=== PATIENT | female | born 1985 | race African-American/Black ===

== ENCOUNTER 2017-06-25 16:15 | Emergency (ER) | payer SELFPAY ==
[~2017-06-25] VITALS: Ht 162.6 cm; Wt 106.6 kg
[~2017-06-25 16:15] MED LIST: HYDROCODON-ACE1 EAC4 ORAL; IBUPROFEN600 MG ORAL; IBUPROFEN600 MG PO; IBUPROFEN800 MG PO; NAPROSYN500 M1 ORAL; NKM; NORCO 5-325 TA1 EACH ORAL; ROBAXIN-750750 MG PO; SOMA350 MG PO; VALIUM5 MG ORAL; VALIUM5 MG PO; VICODIN 5-5001 EACH PO; ZYRTEC10 MG PO
[2017-06-25] MEDS ORDERED: Metoclopramide 10mg/10ml Liq ORAL ONE ×2 (16:45→19:15)
[2017-06-25 17:11] LABS: BASOPHILS % (AUTO) 0.8 % (0.0-2.0); EOSINOPHILS % (AUTO) 8.9 % (0.0-3.0); LYMPHOCYTES % (AUTO) 19.2 % (20.0-45.0); MEAN CORPUSCULAR HEMOGLOBIN 26.9 PG (27.0-31.0); MEAN CORPUSCULAR HGB CONC 30.9 G/DL (32.0-36.0); MEAN CORPUSCULAR VOLUME 87 FL (80-99); MONOCYTES % (AUTO) 7.1 % (1.0-10.0); PLATELET COUNT 403 K/UL (150-450); RED BLOOD COUNT 4.56 M/UL (4.20-5.40); RED CELL DISTRIBUTION WIDTH 13.9 % (11.6-14.8); WHITE BLOOD COUNT 11.6 K/UL (4.8-10.8)
[2017-06-25 17:26] LABS: APPEARANCE,URINE CLEAR; KETONES,URINE NEGATIVE (NEGATIVE); LEUKOCYTE ESTERASE ,URINE NEGATIVE (NEGATIVE); NITRITE,URINE NEGATIVE (NEGATIVE); PH,URINE 7 (4.5-8.0); PROTEIN,URINE NEGATIVE (NEGATIVE); UROBILINOGEN,URINE NORMAL MG/DL (0.0-1.0)
[2017-06-25 17:38] LABS: BACTERIA,URINE FEW /HPF; RBC,URINE 0-2 /HPF (0 - 2); SQUAMOUS EPITHELIAL CELL,UR FEW /LPF (NONE/OCC); WBC,URINE 0-2 /HPF (0 - 2)
--- NOTE | 2017-06-25 19:12 | Emergency Room Report ---
History of Present Illness General Chief Complaint: Complications Source: Patient Present Illness HPI 32-year-old female presents to the emergency department complaining of 5/10 in severity left-sided abdominal pain that she describes as cramping. Patient reports some scant spotting in addition to positive at-home test. Patient states that she is with previous sections and no complications during her other than required delivery. She denies fevers or chills she reports nausea and vomiting denies blood in the vomit. Denies constipation or diarrhea. She states that she has not had followup with her [employer] or primary care since having positive at-home urine test. Denies CP, Palpitations, LOC, AMS, dizziness, Changes in Vision , Sensation, paresthesias, or a sudden severe headache. Allergies: Coded Allergies: No Known Allergies (Unverified , 03/18/12) Patient History Last Menstrual Period: 03/2017 Now: Yes : 3 Para: 2 Nursing Documentation-[facility] Past Medical History: No Stated History Physical Exam Vital Signs Date Time Temp Pulse Resp B/P (MAP) Pulse Ox O2 Delivery O2 Flow Rate FiO2 06/25/17 16:23 97.9 86 16 133/88 100 Room Air Medical Decision Making PA Attestation Dr. cao is my supervising Physician whom patient management has been discussed with. Diagnostic Impression: Primary Impression: Abdominal pain during in first trimester Additional Impression: Threatened ER Course 32-year-old female presents to the emergency department complaining of 5/10 in severity left-sided abdominal pain that she describes as cramping. Patient reports some scant spotting in addition to positive at-home test. Patient states that she is with previous sections and no complications during her other than required delivery. She denies fevers or chills she reports nausea and vomiting denies blood in the vomit. Denies constipation or diarrhea. She states that she has not had followup with her [employer] or primary care since having positive at-home urine test. Denies CP, Palpitations, LOC, AMS, dizziness, Changes in Vision , Sensation, paresthesias, or a sudden severe headache. Ddx considered but are not limited to: Fibroid, ectopic , Fibroid, Spontaneous , Vital signs: are WNL, pt. is afebrile H&PE are most consistent with: abdominal pain in early ORDERS: -CBC: wbc 11.6, no anemia. -Urine hcg- Positive -serum Hcg Quant: [id number] - Blood/RH type and screen- see attached labs : O POSITIVE -Pelvic US complete- normal intrauterine estimated at 7 + 6 days weeks gestation. HR is 131 ED INTERVENTIONS: -Reglan PO Discussed with patient results of all to sound and laboratory testing. Recommend followup with [employer] within 3 days and to return to the emergency department with worsening or new symptoms. Discussed with patient at best and that with positive and history of spotting that threatened miscarriage should be considered and recommend bedrest. DISCHARGE: At this time pt. is stable for d/c to home. Will provide printed patient care instructions, and any necessary prescriptions. Care plan and follow up instructions have been discussed with the patient prior to discharge. Labs Test 06/25/17 16:34 06/25/17 16:50 06/25/17 17:35 Urine Color Pale yellow Urine Appearance Clear Urine pH 7 (4.5-8.0) Urine Specific [place] 1.010 (1.005-1.035) Urine Protein Negative (NEGATIVE) Urine Glucose (UA) Negative (NEGATIVE) Urine Ketones Negative (NEGATIVE) Urine Occult Blood 2+ (NEGATIVE) Urine Nitrite Negative (NEGATIVE) Urine Bilirubin Negative (NEGATIVE) Urine Urobilinogen Normal MG/DL (0.0-1.0) Urine Leukocyte Esterase Negative (NEGATIVE) Urine RBC 0-2 /HPF (0 - 2) Urine WBC 0-2 /HPF (0 - 2) Urine Squamous Epithelial Cells Few /LPF (NONE/OCC) Urine Bacteria Few /HPF (NONE) Urine HCG, Qualitative Positive White Blood Count 11.6 K/UL (4.8-10.8) Red Blood Count 4.56 M/UL (4.20-5.40) Hemoglobin 12.3 G/DL (12.0-16.0) Hematocrit 39.7 % (37.0-47.0) Mean Corpuscular Volume 87 FL (80-99) Mean Corpuscular Hemoglobin 26.9 PG (27.0-31.0) Mean Corpuscular Hemoglobin Concent 30.9 G/DL (32.0-36.0) Red Cell Distribution Width 13.9 % (11.6-14.8) Platelet Count 403 K/UL (150-450) Mean Platelet Volume 5.0 FL (6.5-10.1) Neutrophils (%) (Auto) 64.0 % (45.0-75.0) Lymphocytes (%) (Auto) 19.2 % (20.0-45.0) Monocytes (%) (Auto) 7.1 % (1.0-10.0) Eosinophils (%) (Auto) 8.9 % (0.0-3.0) Basophils (%) (Auto) 0.8 % (0.0-2.0) Human Chorionic Gonadotropin, Quant [id number] mIU/mL (1-6) Last Vital Signs Date Time Temp Pulse Resp B/P (MAP) Pulse Ox O2 Delivery O2 Flow Rate FiO2 06/25/17 16:23 97.9 86 16 133/88 100 Room Air Scripts Vit #91/Fe Fum/Fa/Dha ( + DHA COMBO PACK) 1 Each Combo..pkg 1 EACH PO DAILY, #1 PACK 3 Refills Prov: Elena Martinez 06/25/17 Metoclopramide Hcl* (REGLAN*) 10 Mg Tablet 10 MG ORAL THREE TIMES A DAY Y for Nausea & Vomiting, #20 TAB Prov: Elena Martinez 06/25/17 Referrals: NOT CHOSEN IPA/,REFERRING (PCP) Patient Instructions: Abdominal Pain During , [id number] Additional Instructions: Take medications as directed. -- VITAMINS. you are approx 7 weeks 6 days with single intrauterine according to US performed at today's ED Visit. Follow up with a OBGYN within 3-5 days, even if your symptoms have resolved. Return sooner to ED if new symptoms occur, or current symptoms become worse. - Please note that this Emergency Department Report was dictated using [employer] propellant plant supervisor technology software, occasionally this can lead to erroneous entry secondary to interpretation by the dictation equipment. Elena Martinez Jun 25, 2017 19:12
[2017-06-25] MEDS ORDERED: PRENATAL + DHA1 EAC1 PO (19:13)
[2017-06-25] MEDS ORDERED: REGLAN10 MG ORAL (19:13)
[2017-06-25 19:58] VITALS: BP 133/88
--- NOTE | 2017-06-26 09:44 | Diagnostic Imaging Report ---
Indication: Left adnexal pain, positive test Technique: Transabdominal and transvaginal images Comparison: 07/27/2012 Findings: Uterus measures 14.6 cm length by 7.6 cm AP. Within the endometrium, there is a gestational sac. Mean gestational sac diameter is 43 mm, corresponding assessment gestational age 9 weeks 2 days. This contains a pole with a crown-rump length of 9 mm, corresponding to an estimate of gestational age of 6 weeks 6 days. Estimated gestational age based on average of these measurements is 7 weeks 6 days. Estimated date of delivery 02/03/2018 there is positive heart activity, heart rate 131 bpm. No subchorionic hemorrhage. No myometrial abnormality. No free cul-de-sac fluid. Left ovary measures 3.9 cm length. Right ovary measures 3.7 cm length. Impression: 7 week 6 day, by average of ultrasound measurements, single live intrauterine . No unusual features
== END 2017-06-25 19:58 | disposition home or self-care (01) ==
LOC: EMR 16:42
DX: O26.891 Other specified pregnancy related conditions, first trimester (principal); Z3A.01 Less than 8 weeks gestation of pregnancy; R10.9 Unspecified abdominal pain; O20.0 Threatened abortion
CPT/HCPCS: 36415; 76801; 76830; 81003; 81025; 84702; 85025; 86850; 86900; 86901; 99284

== ENCOUNTER 2018-10-16 15:41 | Emergency (ER) | payer SELFPAY ==
[~2018-10-16] VITALS: Ht 162.6 cm; Wt 104.8 kg
[~2018-10-16 15:41] MED LIST changes: +PRENATAL + DHA1 EAC1 PO; +REGLAN10 MG ORAL
[2018-10-16 15:48] VITALS: BP 121/76
--- NOTE | 2018-10-16 15:54 | NUR ---
ED Nurse Note: Patient presents to ER due to low back pain, sharp, non-radiating. Reports no injury. Reports no numbness or tingling in BLE. Patient works in [employer] and performs lifting and bending. Reports no urinary problem. Ambulating with steady gait.
[2018-10-16 16:23] VITALS: BP 121/76
--- NOTE | 2018-10-16 16:24 | NUR ---
ER DISCHARGE NOTE: Patient is cleared to be discharged per ERMD, pt is aox4, on room air, with stable vital signs. pt was given dc and prescription instructions, pt was able to verbalize understanding, pt id band removed. pt is able to ambulate with steady gait. pt took all belongings.
--- NOTE | 2018-10-16 16:25 | Emergency Room Report ---
History of Present Illness General Chief Complaint: Back Pain-No Injury Source: Patient Present Illness HPI Patient is a 33-year-old female presented after increased low back pain. Patient had a injury at home approximately 3-4 days ago. She reports having improvement in her symptoms. States states she had not been able to work for the past 4 days. Patient states that she lifts heavy objects at work but denies this being a work-related injury. Patient states that she does not have any numbness or tingling to her extremities. She denies any urinary symptoms. Allergies: Coded Allergies: No Known Allergies (Unverified , 03/18/12) Patient History Last Menstrual Period: 09/23/18 Reviewed Nursing Documentation: PMH: Agreed; PSxH: Agreed Nursing Documentation-PMH Past Medical History: No Stated History Review of Systems All Other Systems: negative except mentioned in HPI Physical Exam Vital Signs Date Time Temp Pulse Resp B/P (MAP) Pulse Ox O2 Delivery O2 Flow Rate FiO2 10/16/18 15:48 98.1 14 121/76 96 Room Air 10/16/18 15:48 85 General Appearance: well appearing, no apparent distress, alert, GCS 15 Head: normocephalic, atraumatic ENT: hearing grossly normal, normal voice Neck: full range of motion, supple Respiratory: no respiratory distress, speaking full sentences Cardiovascular #1: normal inspection, normal peripheral pulses, regular rate, rhythm Musculoskeletal: no calf tenderness Neurologic: normal gait Psychiatric: mood/affect normal Skin: no rash Medical Decision Making Diagnostic Impression: Primary Impression: Low back pain ER Course Patient presented for low back pain. Differential diagnosis included but was not limited to herniated disc, cauda equina syndrome, abdominal aortic aneurysm , perforated ulcer, spinal epidural abscess, spinal stenosis, lumbar fracture, metastatic lesion, pyelonephritisPatient presented with what appears to be muscular skeletal low back pain. There is not appear to be any evidence of radiculopathy. Patient states that she does not currently have his bad pain as previously and this had been improving. Patient was advised light duty for the next few days. Patient should be fine to return to work with weight lifting restrictions. She was advised to return to regular work in 1 week. Last Vital Signs Date Time Temp Pulse Resp B/P (MAP) Pulse Ox O2 Delivery O2 Flow Rate FiO2 10/16/18 15:48 98.1 85 14 121/76 96 Room Air Status: improved Disposition: HOME, SELF-CARE Condition: Stable Departure Forms: Return to Work Return to Work in (Days): 1 Return to Work Date: Oct 17, 2018 Other Restrictions: No lifting greater than 25 lbs for one week Patient Instructions: Back Pain, Adult Carter Townsend MD Oct 16, 2018 16:25
== END 2018-10-16 16:29 | disposition home or self-care (01) ==
LOC: EMR 16:10
DX: M54.5 Low back pain (principal)
CPT/HCPCS: 99281

== ENCOUNTER 2019-02-08 17:46 | Emergency (ER) | payer OTHER ==
[~2019-02-08] VITALS: Ht 162.6 cm; Wt 110.2 kg
--- NOTE | 2019-02-08 18:00 | NUR ---
ED Nurse Note: Patient walked into ED c/o low back pain and headache since last night. patient denies any trauma.
--- NOTE | 2019-02-08 18:18 | Emergency Room Report ---
History of Present Illness General Chief Complaint: Back Pain-No Injury Source: Patient Present Illness HPI Disclaimer: Please note that this report is being documented using [employer] technology. This can lead to erroneous entry secondary to incorrect interpretation by the dictating instrument. HPI: 33-year-old female with history of back pain presents for evaluation of back pain. Patient states that she was helping her aunt move into new house is under a lot of new light stresses. She was having some bilateral lumbosacral back pain that does not radiate. She denies any urinary retention, fecal incontinence, fevers, lower extremity paresthesias, saddle anesthesia or any other sudden symptoms. She has had intermittent headache though states she has not been eating or drinking much water as she has had several stressors over the past few weeks. Has a result, she missed work today and presented to the emergency department for evaluation of back pain and requesting a note for work. PMH: None PSH: Denies Allergies: Denies Social Hx: Denies drug, alcohol or tobacco use Allergies: Coded Allergies: No Known Allergies (Unverified , 03/18/12) Patient History Last Menstrual Period: feb Now: No Nursing Documentation-PMH Past Medical History: No Stated History Review of Systems All Other Systems: negative except mentioned in HPI Physical Exam Vital Signs Date Time Temp Pulse Resp B/P (MAP) Pulse Ox O2 Delivery O2 Flow Rate FiO2 02/08/19 17:52 98.4 90 16 128/89 (102) 96 Room Air General: Awake and alert, no acute distress HEENT: NC/AT. EOMI. Skin: Intact. No abrasions, laceration or rash over the exposed skin MSK: Normal tone and bulk. Moving all extremities. No obvious deformity. Neuro: Awake and alert. Mentating appropriately. No saddle anesthesia. Ambulate in without difficulty. Back/Spine: No midline tenderness in the cervical, thoracic or lumbosacral spine. Mild paraspinal tenderness bilaterally in the lumbosacral region. Medical Decision Making Diagnostic Impression: Primary Impression: Back pain ER Course 33-year-old female presents for evaluation of back pain. Differential includes but is not limited to lumbosacral sprain, spinal stenosis, occult fracture, cauda equina syndrome, epidural abscess. There is no trauma, no evidence of infection, the patient has no risk factors for epidural abscess or cauda equina syndrome and overall her physical exam is very reassuring. There are no focal neurologic deficits. She admits that her pain is improving after taking Motrin but presented to the emergency department today requesting a note for work as she missed work today. I believe she does not require any emergent imaging or further work-up at this time. She can be discharged to continue using NSAIDs and follow-up with her PMD. We discussed reasons to return to the emergency department. She understands and agrees with this treatment plan. Last Vital Signs Date Time Temp Pulse Resp B/P (MAP) Pulse Ox O2 Delivery O2 Flow Rate FiO2 02/08/19 17:52 98.4 90 16 128/89 (102) 96 Room Air Disposition: HOME, SELF-CARE Condition: Stable Referrals: [facility] Departure Forms: Return to Work Return to Work in (Days): 1 Return to Work Date: Feb 09, 2019 Other Restrictions: Do not lift weight greater than 5 pounds for 1 to 2 days until pain gone Patient Instructions: Back Pain, Adult Additional Instructions: Continue using Tylenol and Motrin for control of your back pain. If you experience any pain radiating down the leg, difficulty passing urine, loss of bowel control, weakness of the legs, fever or any other sudden change in your health return to the emergency department for reevaluation. Otherwise, you may follow-up with your PMD as needed. Foreign Alfonso MD Feb 08, 2019 18:18
[2019-02-08 18:32] VITALS: BP 121/72
[2019-02-08 18:33] VITALS: BP 121/72
--- NOTE | 2019-02-08 18:33 | NUR ---
ER DISCHARGE NOTE: Patient is cleared to be discharged per EDUIN BENSON, pt is aox4, on room air, with stable vital signs. pt was given dc and prescription instructions, pt was able to verbalize understanding, pt id band andremoved without complications. pt is able to ambulate with steady gait. pt took all belongings.
== END 2019-02-08 18:33 | disposition home or self-care (01) ==
LOC: EMR 18:19
DX: M54.5 Low back pain (principal)
CPT/HCPCS: 99282

== ENCOUNTER 2019-06-22 19:11 | Emergency (ER) | payer OTHER ==
[~2019-06-22] VITALS: Ht 162.6 cm; Wt 106.6 kg
[2019-06-22 19:16] VITALS: BP 130/89
[2019-06-22] MEDS ORDERED: AMOXICILLIN500 MG ORAL (19:38)
[2019-06-22 19:45] VITALS: BP 130/89
--- NOTE | 2019-06-22 21:56 | Emergency Room Report ---
History of Present Illness General Chief Complaint: Flu Like Symptoms Source: Patient Present Illness HPI 34-year-old female presents with sore throat onset yesterday, rated 7 out of 10. She reports she had a fever of 100.4 yesterday. She also reports a mild cough but denies any vomiting, ear pain, diarrhea, chest pain, shortness of breath. No medications taken today. Allergies: Coded Allergies: No Known Allergies (Unverified , 03/18/12) Patient History Past Medical History: see triage record Last Menstrual Period: 05/18/19 Now: No Reviewed Nursing Documentation: PMH: Agreed; PSxH: Agreed Nursing Documentation-PMH Past Medical History: No Stated History Review of Systems All Other Systems: negative except mentioned in HPI Physical Exam Vital Signs Date Time Temp Pulse Resp B/P (MAP) Pulse Ox O2 Delivery O2 Flow Rate FiO2 06/22/19 19:16 97.9 85 18 130/89 (103) 98 Room Air Sp02 EP Interpretation: reviewed, normal General Appearance: no apparent distress, alert, GCS 15, non-toxic Head: normocephalic, atraumatic ENT: hearing grossly normal, normal voice, uvula midline, tonsillar swelling, pharyngeal erythema Neck: full range of motion, no meningismus, supple/symm/no masses Respiratory: chest non-tender, lungs clear, normal breath sounds, speaking full sentences Cardiovascular #1: regular rate, rhythm, no edema Gastrointestinal: normal bowel sounds, non tender, soft, non-distended, no guarding, no rebound Genitourinary: normal inspection, no CVA tenderness Musculoskeletal: back normal, normal range of motion, gait/station normal, non- tender Neurologic: alert, motor strength/tone normal, oriented x3, sensory intact, responsive, speech normal Psychiatric: judgement/insight normal, mood/affect normal Skin: no rash, warm/dry Lymphatic: no adenopathy Medical Decision Making Diagnostic Impression: Primary Impression: Upper respiratory infection Qualified Codes: J06.9 - Acute upper respiratory infection, unspecified Additional Impression: Pharyngitis Qualified Codes: J02.9 - Acute pharyngitis, unspecified ER Course Pt. presents to the ED c/o sore throat and cough. Ddx considered but are not limited to strep pharyngitis, upper respiratory infection, pneumonia, influenza, bronchitis Vital signs: are WNL, pt. is afebrile H&PE are most consistent with pharyngitis ORDERS: none required at this time, the diagnosis is clinical ED INTERVENTIONS: None required at this time. DISCHARGE: At this time pt. is stable for d/c to home. Will provide printed patient care instructions, and prescription for amoxicillin for pharyngitis. Care plan and follow up instructions have been discussed with the patient prior to discharge. Last Vital Signs Date Time Temp Pulse Resp B/P (MAP) Pulse Ox O2 Delivery O2 Flow Rate FiO2 06/22/19 19:45 97.9 18 130/89 98 Room Air 06/22/19 19:25 85 Disposition: HOME, SELF-CARE Condition: Stable Scripts Amoxicillin* (AMOXIL*) 500 Mg Capsule 500 MG ORAL EVERY 8 HOURS, #30 CAP Prov: Analilia Parada 06/22/19 Referrals: NON PHYSICIAN (PCP) Departure Forms: Return to Work Return to Work Date: Jun 25, 2019 Patient Instructions: Upper Respiratory Infection, Adult, [id number], Pharyngitis, [id number] Additional Instructions: Take medications as directed. Follow up with a Primary Care Provider in 3-5 days, even if your symptoms have resolved. --Please review list of primary care clinics, if you do not already have a primary care provider Return sooner to ED if new symptoms occur, or current symptoms become worse. - Please note that this Emergency Department Report was dictated using [employer] engineer technology software, occasionally this can lead to erroneous entry secondary to interpretation by the dictation equipment. Analilia Parada Jun 22, 2019 21:56
== END 2019-06-22 19:50 | disposition home or self-care (01) ==
LOC: EMR 19:49
DX: J02.9 Acute pharyngitis, unspecified (principal); J06.9 Acute upper respiratory infection, unspecified
CPT/HCPCS: 99282

== ENCOUNTER 2020-02-07 22:25 | Emergency (ER) | payer OTHER ==
[~2020-02-07] VITALS: Ht 162.6 cm; Wt 108.9 kg
[~2020-02-07 22:25] MED LIST changes: +AMOXICILLIN500 MG ORAL
[2020-02-07 22:40] VITALS: BP 140/94
--- NOTE | 2020-02-07 23:03 | Emergency Room Report ---
History of Present Illness General Chief Complaint: Upper Extremity Injury Source: Patient Present Illness HPI Patient is a 34-year-old female presents after increased left-sided shoulder pain. She reports having fall recently. She states she fell backwards she denies loss of consciousness. She had been having some pain to the left shoulder blade area. Pain is worse with movement. Denies any vomiting or diarrhea. Denies any fever. No other locations of pain. Previously had C- spine CT which showed some degenerative changes at C6. Allergies: Coded Allergies: No Known Allergies (Unverified , 03/18/12) COVID-19 Screening Contact w/high risk pt: No Experienced COVID-19 symptoms?: No COVID-19 Testing performed MANUFACTURING INSPECTOR: No Patient History Past Medical History: see triage record Last Menstrual Period: 01/05/20 Now: No Reviewed Nursing Documentation: PMH: Agreed; PSxH: Agreed Review of Systems All Other Systems: negative except mentioned in HPI Physical Exam Vital Signs Date Time Temp Pulse Resp B/P (MAP) Pulse Ox O2 Delivery O2 Flow Rate FiO2 02/07/20 22:32 98.2 74 16 140/94 (109) 99 Room Air General Appearance: well appearing, no apparent distress, alert, GCS 15, non- toxic, obese Head: normocephalic, atraumatic ENT: hearing grossly normal, normal voice Neck: full range of motion, supple Respiratory: no respiratory distress, speaking full sentences Cardiovascular #1: normal inspection, regular rate, rhythm Gastrointestinal: normal inspection Genitourinary: normal inspection Musculoskeletal: normal inspection, gait/station normal, other - Normal range of motion to the left shoulder able to abduct abduct and externally rotate without any restriction. Neurologic: alert, motor strength/tone normal, traffic court magistrate III-XII nml as tested, oriented x3, normal gait Psychiatric: mood/affect normal Skin: no rash Medical Decision Making Diagnostic Impression: Primary Impression: Contusion of shoulder, left ER Course Patient presented for left-sided shoulder pain. Differential diagnosis include was not limited to contusion, fracture, radiculopathy among others. Patient has had previous visits with episodic neck pain. She has normal range of motion of her neck and does not have any limitations. There is some tenderness over the scapula. She has normal range of motion to the shoulder. Previous CT imaging showed some C6 bone spurs. Patient pain appears to be localized to the left shoulder blade and patient is focally tender in that location. Extremities show no evidence of acute fracture. Patient appears to be stable for outpatient management. She was given a sling. She was advised not to perform overhead work. She was advised to return if any worsening of condition shortness of breath or other concerns.. Patient is advised to return if any worsening condition or if any changes in status that are concerning. This report is dictated with [employer] order entry representative software which may occasionally lead to discrepancies related to use of this software. Last Vital Signs Date Time Temp Pulse Resp B/P (MAP) Pulse Ox O2 Delivery O2 Flow Rate FiO2 02/07/20 22:32 98.2 74 16 140/94 (109) 99 Room Air Status: improved Disposition: HOME, SELF-CARE Condition: Stable Scripts Diclofenac Sodium (VOLTAREN) 100 Gm Gel..gram. 5 GM TP TWICE A DAY for pain, #100 GM Prov: Carter Townsend MD 02/07/20 Acetaminophen* (ACETAMINOPHEN EXTRA STRENGTH*) 500 Mg Tablet 500 MG ORAL Q8H PRN for Fever/Headache/Mild Pain, #30 TAB Prov: Carter Townsend MD 02/07/20 Referrals: NON PHYSICIAN (PCP) Carter Townsend MD Feb 07, 2020 23:03
[2020-02-07] MEDS ORDERED: DICYCLOMINE HCL10 MG ORAL ×2 (23:21)
[2020-02-07] MEDS ORDERED: METRONIDAZOLE500 MG ORAL ×2 (23:21)
[2020-02-07] MEDS ORDERED: CEPHALEXIN500 MG ORAL ×2 (23:21)
[2020-02-07] MEDS ORDERED: ONDANSETRON ODT4 MG BC ×2 (23:25)
[2020-02-07] MEDS ORDERED: Acetaminophen 500mg (ES) tab ORAL ONE (23:30)
[2020-02-07] MEDS ORDERED: ACETAMINOPHEN500 M3 ORAL (23:42)
[2020-02-07] MEDS ORDERED: VOLTAREN100 G1 TP (23:42)
[2020-02-07 23:58] VITALS: BP 130/90
--- NOTE | 2020-02-08 13:04 | Diagnostic Imaging Report ---
EXAM: X-RAY XRAY Shoulder Compl L CLINICAL HISTORY: Shoulder pain. COMPARISON: None FINDINGS: Total of 3 views of the left shoulder were obtained. Alignment is anatomic. There is no fracture, bony lesions or erosions. Joint spaces are unremarkable. Surrounding soft tissue is normal. IMPRESSION: NO ACUTE BONY ABNORMALITY.
== END 2020-02-08 00:01 | disposition home or self-care (01) ==
LOC: EMR 22:50
DX: S40.012A Contusion of left shoulder, initial encounter (principal); W19.XXXA Unspecified fall, initial encounter; Y92.9 Unspecified place or not applicable; E66.9 Obesity, unspecified
CPT/HCPCS: 99283